=== PATIENT | female | born 1985 | race African-American/Black ===

== ENCOUNTER → 2022-09-14 12:54 | Outpatient (CLI) | payer BC, SELFPAY ==
--- NOTE | ~2022-09-14 | US_ITS ---
EXAMINATION: US pelvic complete w TV DATE: 09/14/2022 13:35 INDICATION: EXAMINATION: US pelvic complete w TV DATE: 09/14/2022 13:35 INDICATION: Excessive and frequent menstruation Comparison:No prior studies TECHNIQUE: Multiple transabdominal and endovaginal sonographic images of the pelvis performed. FINDINGS: The uterus measures 13.4 x 9.3 x 8.7 cm. There are multiple uterine fibroids. The endometri al complex measures 6 mm. The right ovary measures 2 x 1.6 x 2.6 cm and the left ovary not visualized. There is normal Doppler signal in the right ovary. There is no free fluid in the pelvis. There are no abnormal masses seen on either side. IMPRESSION: 1. Enlarged fibroid uterus. Reviewed, dictated and finalized at location A. [employer] IMPRESSION: 1. Enlarged fibroid uterus.
== END ==
PROVIDERS: PCP Internal Medicine; Visit Provider Obstetrics & Gynecology
DX: N92.0 Excessive and frequent menstruation with regular cycle (principal); D25.9 Leiomyoma of uterus, unspecified
CPT/HCPCS: 76830; 76856